=== PATIENT | female | born 1935 | race Caucasian/White ===

== ENCOUNTER 2017-06-19 13:04 | Emergency (ER) | payer MEDICARE, OTHER ==
[~2017-06-19] VITALS: Ht 162.6 cm; Wt 66.7 kg
--- NOTE | ~2017-06-19 | CR252 ---
[facility] A Service of [facility] & [facility] RADIOLOGY TEXT RESULTS PATIENT: SWETHA SANTOS LOCATION: [facility] : 35 UNIT #: [id number] AGE: [address]: Janelle Spears SEX: F ORDER DR: [id number] [facility] [address] [place], [place] [address] [id number] E MR#: [id number] Acc #: [id number] NAME: SWETHA SANTOS : 1935 SEX: F STUDY DATE/TIME: 06/19/2017 13:40 UNIT: [facility] ROOM: STUDY DESCRIPTION: CR Tibia and Fibula 2 Views Lt Attending Physician: Janelle Spears P.A.-C. Ordering Physician: Janelle Spears P.A.-C. Primary Care Physician: Mino Tucker M.D. MEDICAL IMAGING REPORT This report is preliminary unless electronic signature is present EXAM Left tibia and fibula HISTORY Leg pain after falling today on the left side. TECHNIQUE 3 views of the tibia and fibula were obtained. FINDINGS No fractures are seen and no radiodense foreign bodies are noted. Atherosclerotic calcification is seen in the distal SFA and popliteal arteries and to a lesser extent in the runoff vessels. No acute bony abnormalities are seen. IMPRESSION No fracture seen. Dictated by... Levon Salas M.D. THIS IS AN ELECTRONICALLY VERIFIED REPORT Levon Salas M.D. at 06/20/2017 3:41 PM POWER/theodora TD: 06/19/2017 15:15 JOB #: [id number] MEDICAL IMAGING REPORT Page 1 of 1 COPY
--- NOTE | ~2017-06-19 | CR132 ---
[facility] A Service of [facility] & [facility] RADIOLOGY TEXT RESULTS PATIENT: SWETHA SANTOS LOCATION: [facility] : 35 UNIT #: [id number] AGE: [address]: Janelle Spears SEX: F ORDER DR: [id number] [facility] [address] [place], [place] [address] [id number] E MR#: [id number] Acc #: [id number] NAME: SWETHA SANTOS : 1935 SEX: F STUDY DATE/TIME: 06/19/2017 14:24 UNIT: [facility] ROOM: STUDY DESCRIPTION: CR Forearm 2 View Lt Attending Physician: Janelle Spears P.A.-C. Ordering Physician: Janelle Spears P.A.-C. Primary Care Physician: Mino Tucker M.D. MEDICAL IMAGING REPORT This report is preliminary unless electronic signature is present EXAM 2 views, left forearm, 06/19/2017. HISTORY Left forearm pain after falling today. COMPARISON None FINDINGS No acute left forearm fracture is seen. The elbow and wrist joints appear appropriately aligned. There is degenerative narrowing of the scaphotrapezium junction with loss of normal joint space and articular spurs, and marginal osteophyte formation. No retained radiopaque foreign body. IMPRESSION 1. No acute abnormality of the left forearm. 2. 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 Dictated by... Maribel Dudley M.D. THIS IS AN ELECTRONICALLY VERIFIED REPORT Maribel Dudley M.D. at 06/21/2017 9:34 PM CHAPINCITO/juana TD: 06/19/2017 17:18 JOB #: [id number] MEDICAL IMAGING REPORT Page 1 of 1 COPY
--- NOTE | ~2017-06-19 | CR229 ---
[facility] A Service of [facility] RADIOLOGY TEXT RESULTS PATIENT: SWETHA SANTOS LOCATION: [facility] : 35 UNIT #: [id number] AGE: [address]: Janelle Spears SEX: F ORDER DR: [id number] [facility] [address] [place], [place] [address] [id number] E MR#: [id number] Acc #: [id number] NAME: SWETHA SANTOS : 1935 SEX: F STUDY DATE/TIME: 06/19/2017 13:47 UNIT: [facility] ROOM: STUDY DESCRIPTION: CR Shoulder Min 2 View Lt Attending Physician: Janelle Spears P.A.-C. Ordering Physician: Janelle Spears P.A.-C. Primary Care Physician: Mino Tucker M.D. MEDICAL IMAGING REPORT This report is preliminary unless electronic signature is present EXAM Left shoulder HISTORY Shoulder pain on the left after falling today. TECHNIQUE Three views of the shoulder were obtained. FINDINGS Three views of the shoulder show a comminuted fracture of the humeral head. There is a transverse fracture of the surgical neck of the humerus as well as an avulsion fracture of the greater tuberosity longitudinally oriented. The humeral head is displaced posteriorly and slightly rotated with respect to the humeral shaft. The greater tuberosity longitudinal fracture fragment is distracted approximately 1 cm. The bony glenoid is intact. The acromioclavicular joint shows degenerative change. The aorta is tortuous and calcified. IMPRESSION Comminuted humeral head fracture as described above. No evidence of shoulder dislocation. Dictated by... Levon Salas M.D. THIS IS AN ELECTRONICALLY VERIFIED REPORT Levon Salas M.D. at 06/20/2017 3:41 PM RLF/keiko TD: 06/19/2017 15:13 [facility] A Service of [facility] RADIOLOGY TEXT RESULTS PATIENT: SWETHA SANTOS LOCATION: [facility] : 35 UNIT #: [id number] AGE: [address]: Janelle Spears SEX: F ORDER DR: JOB #: [id number] MEDICAL IMAGING REPORT Page 1 of 1 COPY
== END 2017-06-19 15:15 | disposition home or self-care (01) ==
LOC: CED 13:04
DX: S42.212A Unspecified displaced fracture of surgical neck of left humerus, initial encounter for closed fracture (principal); Z90.710 Acquired absence of both cervix and uterus; W01.0XXA Fall on same level from slipping, tripping and stumbling without subsequent striking against object, initial encounter; Y92.009 Unspecified place in unspecified non-institutional (private) residence as the place of occurrence of the external cause; Z23 Encounter for immunization
CPT/HCPCS: 73030; 73090; 73590; 90471; 90715; 96374; 96375; 99283; J2270; J2405